=== PATIENT | female | born 1935 | race Caucasian/White ===

== ENCOUNTER → 2017-12-31 17:28 | Outpatient (CLI) | payer MEDICARE, BC | END | disposition home or self-care (01) | LOC: D.MAMMO 12-02 13:30 | DX: Z12.31 Encounter for screening mammogram for malignant neoplasm of breast (principal) ==

== ENCOUNTER → 2019-01-06 16:44 | Outpatient (CLI) | payer MEDICARE, BC | END | disposition home or self-care (01) | LOC: D.MAMMO 10:00 | DX: Z12.31 Encounter for screening mammogram for malignant neoplasm of breast (principal) ==

== ENCOUNTER → 2020-04-05 20:52 | Outpatient (CLI) | payer MEDICARE, BC | END | disposition home or self-care (01) | LOC: D.MAMMO 02-09 11:45 | PROVIDERS: ATTEND Family Medicine | DX: Z12.31 Encounter for screening mammogram for malignant neoplasm of breast (principal) ==

== ENCOUNTER 2021-02-21 11:06 | Day surgery (SDC) | payer MEDICARE, BC ==
[~2021-02-21] VITALS: Ht 170.2 cm; Wt 71.4 kg
--- NOTE | ~2021-02-21 | HEMODYNAMI ---
PATIENT:HE GOLDBERG MEDICAL RECORD: [id number] : 39 LOCATION:D.CAT ADMISSION DATE: 02/21/21 Generatedon:115:24 Patient name: HE GOLDBERG Patient #: [id number] SSN: [id number] : 1935 Date of study: 02/21/2021 Page: Of Hemodynamic Procedure Report Patient Data Patient Demographics Procedure consent was obtained First Name: HE Gender: Female Last Name: ASHLYN : 1935 Middle Initial: F Age: 86 year(s) Patient #: [id number] Race: SSN: [id number] Additional ID: [id number] Contact details Address: [address] [place] [address] ln State: [place] City: [facility] Zip code: [address] Admission Admission Data Admission Date: 02/21/2021 Admission Time: 11:06 Arrival Date: 02/21/2021 Arrival Time: 13:00 Admit Source: Other Insurance Payor: Medicare [facility] #: [id number] Height (in.): 66.93 BSA: 1.82 (m2) Height (cm.): 170 BMI: 24.57 (kg/m2) Weight (lbs.): 156.53 Weight (kg.): 71 Lab Results Lab Result Date: 02/21/2021 Lab Result Time: 0:00 Biochemistry Name Units Result Min Max BUN mg/dl 18 --(---*)-- 7 18 Creatinine mg/dl 1 --(--*-)-- 0.6 1.3 eGFR ml/min 56 *-(----)-- 90 120 NONAFRICAN CBC Name Units Result Min Max Hemoglobin g/dl 13.9 --(*---)-- 13.5 17.5 Procedure Procedure Types Cath Procedure Diagnostic Procedure PPM/ICD PPM Dual Implant Sedation Charges Moderate Sedation 55-69 minutes Procedure Description Procedure Date Procedure Date: 02/21/2021 Procedure Start Time: 14:29 Procedure End Time: 15:20 Procedure Staff Name Function Osvaldo Toribio MD Performing Physician Maya Aguilar RT Monitor Colleen Ma RT Scrub Jabari Timmons RN Nurse Procedure Data Cath Procedure Fluoroscopy Diagnostic fluoroscopy Total fluoroscopy Time: 2.6 time: 2.6 min min Diagnostic fluoroscopy Total fluoroscopy dose: dose: 25.59 mGy 25.59 mGy Estimated blood loss: 5 ml Procedure Complications No complications Procedure Medications Medication Administration Route Dosage Oxygen etCO2 Nasal cannula 2 l/min Lidocaine 1% with added to field 30 ml Epi Ancef Irrigation Topical 1 g (1gm/500ml NS) Ancef (1Gm/50ml NS) I.V.P.B 1 g 0.9% NaCl I.V. Versed I.V. 1 mg Fentanyl I.V. 50 mcg Versed I.V. 1 mg Fentanyl I.V. 50 mcg Versed I.V. 1 mg Fentanyl I.V. 50 mcg Versed I.V. 1 mg Versed I.V. 1 mg Hemodynamics Rest BSA: 1.82 (m2) HGB: 13.9 (g/dl) O2 Consumption: Estimated: 153.64 (ml/min) O2 Co nsumption indexed: Estimated:84.42 (ml/min/m) Heart Rate: 58 (bpm) Snapshots Pre Cath Intra NCS Post Cath Vital Signs Time Heart Resp SPO2 etCO2 NIBP (mmHg) Rhythm Pain Sedation Rate (ipm) (%) (mmHg) Status Level (bpm) 14:15:49 57 15 100 38.1 160/75(119) SB (Missing) 10(A) 14:21:14 52 12 100 32.1 138/67(106) SB (Missing) 10(A) 14:25:28 53 14 100 38.1 140/66(115) SB (Missing) 10(A) 14:29:47 52 11 99 37.3 115/56(84) SB (Missing) 10(A) 14:34:52 53 11 99 37.3 123/65(100) SB (Missing) 9(A) 14:39:06 55 14 99 37.3 130/53(101) SB (Missing) 9(A) 14:43:22 56 8 97 33.6 113/53(91) SB (Missing) 9(A) 14:47:34 63 9 96 23.1 105/50(85) SB (Missing) 9(A) 14:52:39 84 14 97 33.6 107/60(93) SB (Missing) 9(A) 14:57:42 64 12 98 41 126/60(104) SB (Missing) 9(A) 15:01:54 59 12 99 34.3 127/62(105) SB (Missing) 10(A) 15:06:43 56 13 98 38.8 124/58(104) SB (Missing) 10(A) 15:10:57 60 11 99 26.1 126/57(104) SB (Missing) 10(A) 15:16:04 62 16 99 20.9 136/61(70) SB (Missing) 10(A) 15:20:20 63 17 99 33.6 140/61(111) SB (Missing) 10(A) Medications Time Medication Route Dose Verified Delivered Reason Notes Effectiv eness by by 14:14:51 Oxygen etCO2 2 Osvaldo Buffie used for Nasal l/min [facility]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 kvo Osvaldo Lunaie Per ml/hr [place] Timmons RN physician 14:21:35 Versed I.V. 1 mg Osvaldo Buffie for Catarino Timmons RN sedation 14:21:42 Fentanyl I.V. 50 Osvaldo Buffie for [facility] Catarino Timmons RN sedation 14:27:53 Versed I.V. 1 mg Osavldo Buffie for Catarino Timmons RN sedation 14:27:57 Fentanyl I.V. 50 Osvaldo Buffie for [facility] Catarino Timmons RN sedation 14:34:20 Versed I.V. 1 mg Osvaldo Buffie for Catarino Timmons RN sedation 14:34:24 Fentanyl I.V. 50 Osvaldo Buffie for [facility] Catarino Timmons RN sedation 14:40:47 Versed I.V. 1 mg Osvaldo Cristina RN sedation 14:50:50 Versed I.V. 1 mg Osvaldo Cristina RN sedation Procedure Log Time Note 13:56:10 Admit Source: Other 13:56:15 Arrival Date: 02/21/2021 1:00:00 PM 13:56:47 Insurance Payor : Medicare 13:57:01 Patient Height : 66.93 inches 13:57:06 Patient Weight : 156.53 lbs 13:58:20 Lab Result : BUN 18 mg/dl 13:58:20 Lab Result : eGFR NONAFRICAN 56 ml/min 13:58:20 Lab Result : Hemoglobin 13.9 g/dl 13:58:20 Lab Result : Creatinine 1 mg/dl 13:58:27 Diagnostic Cath Status : Elective 13:59:25 Procedure Status PPM/ Gen Change/ Lead Revision/ Temp. 13:59:38 Colleen Ma RT(R) sent for patient. Start room use. 14:00:17 Time tracking: Regular hours (M-F 7:00 - 5:00) 14:00:22 Plan of Care:Hemodynamics will remain stable., Cardiac rhythm will remain stable., Comfort level will be maintained., Respiratory function will remain adequate., Patient/ family verbilizes understanding of procedure., Procedure tolerated without complication., Recovers from procedure without complications.. 14:04:43 Patient received from Pre/Post Procedure Room to [facility] 3 Alert and oriented. Tansferred to table in Supine position. 14:04:45 Signed procedure consent form obtained from patient. 14:04:46 Warm blankets applied, and emanuel hugger turned on for patient comfort. 14:04:47 Correct patient and procedure confirmed by team. 14:04:48 ECG and BP/O2 sat monitors applied to patient. 14:14:36 Vital chart was started 14:14:51 Oxygen 2 l/min etCO2 Nasal cannula was administered by Jabari Timmons RN; used for procedure; Verbal order read back and verified. 14:14:58 Baseline sample Acquired. 14:15:03 Lidocaine 1% with Epi 30 ml added to field was administered by Osvaldo Toribio MD; for local anesthetic; Verbal order read back and verified. 14:15:04 Rhythm: sinus rhythm 14:15:06 Full Disclosure recording started 14:15:19 H&P Date Dictated: 02/21/2021 Within 30 days and on chart., H&P Addendum completed by physician on day of procedure. (MUST COMPLETE FOR ALL OUTPATIENTS). 14:15:21 Pre-procedure instructions explained to patient. 14:15:21 Pre-op teaching completed and patient verbalized understanding. 14:15:24 Family unavailable. 14:15:25 Patient NPO since Midnight. 14:15:28 Is the patient allergic to Iodine/contrast media? No. 14:15:29 Ancef Irrigation (1gm/500ml NS) 1 g Topical was administered by Osvaldo Toribio MD; used for procedure; Verbal order read back and verified. 14:15:38 Ancef (1Gm/50ml NS) 1 g I.V.P.B was administered by Jabari Timmons RN; used for procedure; Verbal order read back and verified. 14:15:50 Was the patient premedicated? No 14:15:52 Is patient on blood thinner?No 14:15:53 Patient diabetic? No. 14:15:56 Previous problem with sedation/anesthesia? No ? 14:16:00 Snore? Yes 14:16:01 Sleep apnea? No 14:16:02 Deviated septum? No 14:16:03 Opens mouth fully? Yes 14:16:04 Sticks out tongue? Yes 14:16:06 Airway obstruction? No ? 14:16:09 Dentures? No ? 14:16:12 Pre procedure: right dorsailis pedis pulse 2+ Normal; easily identifiable; not easily obliterated 14:16:15 Pre procedure: left dorsailis pedis pulse 2+ Normal; easily identifiable; not easily obliterated 14:16:17 Patient pain scale 0/10 ?. 14:16:25 IV patent on arrival in right forearm with 0.9% NaCl at [facility]. 14:16:28 Lab results completed and on chart. 14:16:37 Left chest area was prepped with chlora-prep and draped in sterile fashion 14:16:38 Alarms reviewed by R. N. 14:16:38 Sharps counted by scrub and verified by R.N. 14:16:39 Physician arrived 14:16:40 --------ALL STOP TIME OUT------ 14:16:40 Final Timeout: patient, procedure, and site verified with staff and physician. All members of the team are in agreement. 14:16:45 Left chest site verified by team. 14:16:50 Fire Safety Assessment: A--An alcohol-based skin anteseptic being used preoperatively., C--Open oxygen or nitrous oxide is being used., D--An ESU, laser, or fiber-optic light is being used. 14:16:54 Physical assessment completed. ASA score P 2 - A patient with mild systemic disease as per Osvaldo Toribio MD. 14:17:01 Sedation plan: IV Moderate Sedation Medication:Versed, Fentanyl 14:18:13 Use device set ANA M PPM 14:18:15 3-0 Vicryl Single Pack [id number] opened to sterile field. 14:18:16 5-0 Monocryl PS2 [id number] opened to sterile field. 14:18:17 Cautery Tip Slots Manager opened to sterile field. 14:18:17 Cautery Pushbutton Pencil opened to sterile field. 14:20:51 0.9% NaCl kvo ml/hr I.V. was administered by Jabari Timmons RN; Per physician; Verbal order read back and verified. 14:21:35 Versed 1 mg I.V. was administered by Jabari Timmons RN; for sedation; Verbal order read back and verified. 14:21:42 Fentanyl 50 mcg I.V. was administered by Jabari Timmons RN; for sedation; Verbal order read back and verified. 14:26:01 Procedure started. 14:27:53 Versed 1 mg I.V. was administered by Jabari Timmons RN; for sedation; Verbal order read back and verified. 14:27:57 Fentanyl 50 mcg I.V. was administered by Jabari Timmons RN; for sedation; Verbal order read back and verified. 14:28:15 [place] [employer] client service representative SIDDHARTHA YAÑEZ present for procedure. 14:28:36 Pre sharps counted by scrub and verified by RN: Sutures: 2; Sponges: 5; Stick needles: 2; Skin needles: 2; Blade: 1; Cautery: 1 14:28:40 Grounding pad site Left thigh. 14:28:42 Grounding pad site free from injury. 14:29:40 Lidocaine 1% w/epi was administered to left subclavicular area by Osvaldo Toribio MD . 14:29:44 Incision made to left subclavicular area. 14:34:20 Versed 1 mg I.V. was administered by Jabari Timmons RN; for sedation; Verbal order read back and verified. 14:34:24 Fentanyl 50 mcg I.V. was administered by Jabari Timmons RN; for sedation; Verbal order read back and verified. 14:40:47 Versed 1 mg I.V. was administered by Jabari Timmons RN; for sedation; Verbal order read back and verified. 14:43:15 Generator pocket made/opened. 14:43:20 Left subclavian vein accessed with 9Fr Peel Away Sheath. 14:47:46 Ventricular lead inserted and advanced. 14:50:50 Versed 1 mg I.V. was administered by Jabari Timmons RN; for sedation; Verbal order read back and verified. 14:51:22 Atrial lead inserted and advanced. 14:51:25 Ventricular lead positioned. 14:51:28 Atrial lead positioned. 14:54:01 Peel-a-way sheath was split and removed. 14:54:16 PPM Dual was attached to lead(s) and inserted into pocket. 15:03:20 Ventricular lead attachment was completed with 2-0 ticron. 15:03:25 2-0 Ticron Multipack ([id number]) opened to sterile field. 15:03:32 Atrial lead attachment was completed with 2-0 ticron. 15:07:49 Generator was sutured in place with 2-0 ticron. 15:08:11 Parameters-- Generator: Mode: dddr. Lower Rate: 60bpm. Upper Rate: 130bpm. 15:08:42 Parameters--Ventricular P/R Wave: 5.6mV. Current: 0.1mA; Threshold: 0.6V; Impedence: 1490OHMS. 15:09:15 Parameters--Atrial P/R Wave: 2.6mV. Current: 0.7mA; Threshold: 0.6V; Impedence: 0749OHMS. 15:10:59 Device pocket was irrigated with Ancef. 15:12:36 Subcutaneous closure was completed with 3-0 vicryl plus. 15:12:42 Skin closure was completed with 5-0 monocryl. 15:12:56 Lt Chest incision was dressed with 4 x 4 and Tegaderm. 15:13:[address] Generator [id number] opened to sterile field. 15:14:33 Medtronic 4574-45 PPM Lead opened to sterile field. 15:15:38 Medtronic 4074-52 PPM Lead opened to sterile field. 15:17:31 Procedure ended.(Physican Out) 15:17:34 Fluoroscopy time 02.60 minutes. 15:17:40 Fluoroscopy dose: 25.59 mGy 15:17:40 Flurop Dose total: 25.59 15:17:47 Dose Area Product 333.39 mGy/cm. 15:17:58 Insertion/operative site no bleeding no hematoma. 15:18:12 Post procedure rhythm: paced 15:18:49 Tegaderm 4 x 4 (1626W) opened to sterile field. 15:18:49 Tegaderm 4 x 4 (1626W) opened to sterile field. 15:18:54 Estimated blood loss: 5 ml 15:18:56 Post procedure instruction explained to patient.Patient verbalizes understanding. 15:18:57 Patient needs reinforcement of post procedure teaching. 15:20:07 Procedure type changed to Cath procedure, Diagnostic procedure, PPM/ICD, PPM Dual Implant, Sedation Charges, Moderate Sedation 55-69 minutes 15:20:09 Procedure and supply charges have been captured, reviewed, submitted and are correct. 15:20:14 Procedure Complication : No complications 15:20:17 Vital chart was stopped 15:20:19 Operative report dictated upon procedure completion. 15:20:20 See physician's report for complete and final results. 15:20:21 Report given to Pre/Post Procedure Room. 15:20:24 Patient transfered to Pre/Post Procedure Room with Stretcher. 15:20:26 Procedure ended. 15:20:26 Full Disclosure recording stopped 15:20:30 End room use (Document Last) 15:21:24 End room use (Document Last) 15:21:53 End room use (Document Last) Device Usage Item Name Manufacture Quantity Catalog Hospital Part Current Minima l Lot# / Number Charge Number Stock Stock Serial# Code 3-0 Vicryl Ethicon 1 [id number] [id number] 908297 5 Single Pack [id number] 5-0 Monocryl Ethicon 1 [id number] 785851 182491 168627 5 PS2 Y495G Cautery Tip Microtek 1 [id number] 630480 846211 150413 5 [employer] Cautery Microtek 1 [id number] 112070 67304 907298 5 [employer] Pencil 2-0 Ticron Ethicon 7 [id number] 549224 68886 484529 5 Multipack ([id number]) Medtronic Medtronic 1 [id number] 967732 2003331 855534 [id number] EXP Generator 03-08-2022 [id number] Medtronic Medtronic 1 4574-45 897252 440441 101671 5 [id number] 4574-45 PPM EXP Lead 06-20-2022 Medtronic Medtronic 1 4074-52 648272 270629 809495 5 [id number] 4074-52 PPM EXP Lead 06-08-2022 Tegaderm 4 x 3M 2 [id number] 946380 [id number] [id number] 5 4 (1626W) Signature Audit [place] Stage Time Signature Unsigned Intra-Procedure 02/21/2021 Maya Aguilar 3:21:24 PM RT(R) Intra-Procedure 02/21/2021 Jabari Timmons RN 3:21:53 PM Intra-Procedure 02/21/2021 Osvaldo Allen 3:24:24 PM [facility] [address] [place] [address]
[2021-02-21] MEDS ORDERED: ZOCOR20 MG PO (11:33)
[2021-02-21] MEDS ORDERED: FISH OIL 1,0001 CA1 PO (11:33)
[2021-02-21] MEDS ORDERED: OS-CAL500 MG PO (11:34)
[2021-02-21] MEDS ORDERED: OSTEO BI-FLEX1 EAC1 PO (11:34)
[2021-02-21 11:53] VITALS: BP 151/52; Ht 170.2 cm; Wt 71.4 kg
[2021-02-21 12:01] LABS: HEMATOCRIT 42.5 % (36.0-48.0); HEMOGLOBIN 13.9 g/dL (12-16); MCH 30.5 pg (26.0-34.0); MCHC 32.7 g/dL (31.0-37.0); MCV 93.4 fL (80.0-100.0); MEAN PLATELET VOLUME 9.2 fL (7.4-10.4); RBC 4.55 10x6/uL (4.00-5.40); RDW 12.8 % (11.5-14.5); WBC 4.8 10x3/uL (4.8-10.8)
[2021-02-21 12:09] LABS: ANION GAP 11.9 mmol/L (8-16); CALCIUM 8.7 mg/dL (8.5-10.1); CARBON DIOXIDE 26.4 mmol/L (21.0-32.0); POTASSIUM - SERUM 4.3 mmol/L (3.5-5.1)
[2021-02-21 12:34] LABS: APTT 30.3 SECONDS (22.8-39.4); INR 1.07 (0.85-1.17); PROTIME 12.9 SECONDS (11.6-15.0)
--- NOTE | 2021-02-21 15:30 | NUR ---
PT ARRIVED BY STRETCHER. PLACED ON MONITORS. ASSESSMENT COMPLETED. VSS AT THIS TIME. CALL LIGHT WITHIN REACH. DR. WALTER ROUNDED AND SPOKE WITH PT'S .
--- NOTE | 2021-02-21 15:43 | NUR ---
RADIOLOGY AT BEDSIDE FOR PCXR.
--- NOTE | 2021-02-21 15:45 | NUR ---
LEFT UPPER CHEST DRESSING C/D/I. NO S/S OF HEMATOMA NOTED. LEFT ARM IN SLING. VSS. PT A-V PACED. HR 60. TOLERATING SIPS OF WATER. DENIES NAUSEA/PAIN.
--- NOTE | 2021-02-21 16:12 | NUR ---
LEFT UPPER CHEST DRESSING C/D/I. NO S/S OF HEMATOMA NOTED. CXR RESULTS REVIEWED. NO ABNORMALITIES FOUND. PT HAS NO S/S OF RESP DISTRESS NOTED.
--- NOTE | 2021-02-21 16:17 | NUR ---
LEFT UPPER CHEST DRESSING C/D/I. NO S/S OF HEMATOMA NOTED. LEFT ARM IN SLING. PIV D/C'D WITH CATH TIP INTACT. TOLERATED WELL. PT INSTRUCTED TO GET UP AND DRESSED AT THIS TIME. FAMILY AT BEDSIDE TO ASSIST. CALL LIGHT LEFT WITHIN REACH.
--- NOTE | 2021-02-21 16:30 | NUR ---
LEFT CHEST DRESSING C/D/I. NO S/S OF HEMATOMA NOTED. DISCUSSED DISCHARGE INSTRUCTIONS WITH PT AND PT'S FAMILY. THEY VOICED UNDERSTANDING.
--- NOTE | 2021-02-21 16:40 | NUR ---
PT AMBULATED TO RESTROOM. VOIDED WITHOUT DIFFICULTY. STEADY GAIT NOTED. PT TAKEN OUT TO VEHICLE BY WHEELCHAIR. NO S/S OF DISTRESS NOTED. ALL BELONGINGS AND PAPERWORK IN HAND.
--- NOTE | 2021-02-22 11:32 | OP ---
PATIENT NAME: HE CAMACHO MEDICAL RECORD: [id number] :39 LOCATION:D.CAT ADMISSION DATE: SURGEON: SKYLER WALTER MD DATE OF OPERATION: 02/21/2021 PROCEDURE: Lead portion of permanent pacemaker placement. SURGEON: Dr. Diaz INDICATION: Sick sinus syndrome with pauses and PAF. DESCRIPTION OF PROCEDURE: After left subclavian was cannulated via modified Seldinger technique via Dr. Diaz, first under fluoroscopic guidance, placed the RV lead in the RV apex without difficulty. After adequate thresholds and R waves obtained, again under fluoroscopic guidance placed the right atrial lead into the right atrial appendage without difficulty. After adequate P waves and thresholds were obtained, the leads were attached to appropriate poles of the generator and pocket was closed via Dr. Diaz. IMPRESSION: Successful lead portion of permanent pacemaker placement of He Camacho. ESTIMATED BLOOD LOSS: Minimal. COMPLICATIONS: None. DISPOSITION: To the floor, stable. TRANSINT:[id number] Voice Confirmation ID: [id number] DOCUMENT ID: [id number] SKYLER WALTER MD at 1132 CC: [id number] DICTATION DATE: 02/21/21 1520 WATER QUALITY ASSISTANT: 02/21/21 2316 [facility] 02/21/21 [id number] [place] [address]
== END 2021-02-21 16:40 | disposition home or self-care (01) ==
LOC: D.CATH 11:06
PROVIDERS: ATTEND Internal Medicine Interventional Cardiology
DX: I49.5 Sick sinus syndrome (principal)